=== PATIENT | male | born 2000 | race African-American/Black ===

== ENCOUNTER 2022-09-03 17:15 | Emergency (ER) | payer BC, OTHER ==
[~2022-09-03] VITALS: Ht 177.8 cm; Wt 68.0 kg
--- NOTE | 2022-09-03 17:26 | ED Upper Extremity ---
General Chief Complaint: Upper Extremity Stated Complaint: RT HAND FINGER INJURY History of Present Illness Date Seen by Provider: Sep 03, 2022 Time Seen by Provider: 17:25 Initial Comments 21-year-old male is sent here from the urgent care clinic for a right middle finger dislocation which the patient sustained while playing football today. Patient jammed his finger on the football. Urgent care sent the patient to the ER for reduction of the joint. Patient complains of mild pain and swelling of the right middle finger. Denies sensory loss. Allergies and Home Medications Allergies Coded Allergies: No Known Drug Allergies (Unverified , 09/03/22) Patient Home Medication List Home Medication List Reviewed: Yes Review of Systems Constitutional: no symptoms reported EENTM: no symptoms reported Respiratory: no symptoms reported Cardiovascular: no symptoms reported Gastrointestinal: no symptoms reported Genitourinary: no symptoms reported Musculoskeletal: joint pain, joint swelling Skin: no symptoms reported Psychiatric/Neurological: No Symptoms Reported Physical Exam Vital Signs Vital Signs - First Documented 09/03/22 17:25 Temp 36.2 Pulse 82 Resp 18 B/P (MAP) 134/77 (96) Pulse Ox 99 O2 Delivery Room Air Capillary Refill : Height, Weight, BMI Height: '" Weight: lbs. oz. kg; BMI Method: General Appearance: WD/WN, no apparent distress HEENT: PERRL/EOMI Neck: full range of motion Wrist: Yes normal inspection, Yes non-tender, Yes no evidence of injury, Yes normal ROM Hand: Right, bone tenderness, deformity (right 4th finger, PIP joint deformity and swelling. NV bundle intact. Limited ROM due to injury), limited ROM Neurologic/Tendon: normal sensation Neurologic/Psychiatric: alert, normal mood/affect, oriented x 3 Progress/Results/Core Measures Results/Orders My Orders Orders - ANTONETTE BECKHAM MD Finger(S) (09/03/22 17:39) Finger(S) (09/03/22 19:22) Rx-Oxycodone/Apap 5-325 Mg (Rx-Percocet (09/03/22 20:00) Ibuprofen Tablet (Motrin Tablet) (09/03/22 20:00) Medications Given in ED Current Medications Medications Dose Ordered Sig/Flex Route Start Time Stop Time Status Last Admin Dose Admin Ibuprofen 600 mg ONCE ONCE PO 09/03/22 20:00 09/03/22 20:01 DC 09/03/22 20:05 600 MG Vital Signs/I&O 09/03/22 17:25 Temp 36.2 Pulse 82 Resp 18 B/P (MAP) 134/77 (96) Pulse Ox 99 O2 Delivery Room Air Progress Progress Note : Progress Note 1. RIGHT 4TH FINGER PIP DISLOCATION with avulsion fracture: - XR RIGHT 4TH FINGER: DISLOCATION AND AVULSION - repeat reduction xr: SUCCESSFUL REDUCTION - Urgent care sent a diSc with x-ray images of finger but we are unable to access it since we do not have a machine which can read it. We called urgent care and they are unable to cloud it to us. - Local finger block with 2% lido, finger reduction done. Splint placed. - Ibuprofen 600mg given in ER - Follow up with Ortho within 7 days ( Dr Skaggs's office).Call for appointment - Cannot play football until cleared by ortho - Percocet tabs dispensed from ER for severe pain, every 6 hours as needed., For mild to moderate pain take ibuprofen 600mg every 6 to 8 hours - Ice application Diagnostic Imaging Diagonstic Imaging: Xray Plain Films/CT/US/NM/MRI: other Comments [email or web address] [place] NAME: DENA CLARK MED REC#: [id number] PT STATUS: REG ER : 2000 PHYSICIAN: ANTONETTE BECKHAM MD ADMIT DATE: 09/03/22/ER FS Draft Date of Exam:09/03/22 FINGER(S) EXAMINATION: Left fingers 2 or more views. HISTORY: Finger injury. COMPARISON: Earlier the same day. FINDINGS: There has been reduction of the proximal interphalangeal dislocation of the right fourth finger. There is a fracture fragment at the joint line. IMPRESSION: Reduced dislocation of the proximal interphalangeal joint of the right fourth finger with a small fracture fragment at the jointline. Dictated on workstation # [id number] Dict: 09/03/221954 Trans: 09/03/222000 PJE [id number] Interpreted by: PHILOMENA RUDOLPH MD Electronically signed by: [email or web address] [place] NAME: DENA CLARK MED REC#: [id number] PT STATUS: REG ER : 2000 PHYSICIAN: ANTONETTE BECKHAM MD ADMIT DATE: 09/03/22/ER FS Signed Date of Exam:09/03/22 FINGER(S) EXAMINATION: Left fingers 2 or more views. HISTORY: Finger injury. COMPARISON: None available. FINDINGS: There is a fracture dislocation of the fourth proximal interphalangeal joint with posterior displacement of the distal and middle phalanx. There is a small avulsion fracture of the base of the middle phalanx. No other fracture is seen. IMPRESSION: Fracture dislocation of the proximal interphalangeal joint of the right fourth finger. Dictated by: Dictated on workstation # [id number] Dict: 09/03/221838 Trans: 09/03/221852 PJ [id number] Interpreted by: PHILOMENA RUDOLPH MD Electronically signed by: PHILOMENA RUDOLPH MD 09/03/221852 Departure Impression Primary Impression: Closed fracture dislocation of proximal interphalangeal (PIP) joint of finger Qualified Codes: S62.609A - Fracture of unspecified phalanx of unspecified finger, initial encounter for closed fracture Additional Impression: Avulsion fracture of proximal phalanx of finger Disposition: 01 HOME, SELF-CARE Condition: Improved Departure-Patient Inst. Referrals: ENRIKE SKAGGS MD Patient Instructions: Splint Care, Finger Fracture ED, Avulsion Fracture Add. Discharge Instructions: - Follow up with Ortho within 7 days ( Dr Skaggs's office).Call for appointment - Cannot play football until cleared by ortho - Percocet tabs dispensed from ER for severe pain, every 6 hours as needed., For mild to moderate pain take ibuprofen 600mg every 6 to 8 hours - Ice application All discharge instructions reviewed with patient and/or family. Voiced understanding. Work/School Note: School/Childcare Release Date Seen in the Emergency Department: Sep 03, 2022 Return to School: Sep 05, 2022 Restrictions: No PE-Until Released, No Sports-Until Released, Need Release from Doctor Other Restrictions Listed Below: Need clearance from Ortho prior to playing football ANTONETTE BECKHAM MD Sep 03, 2022 17:25
--- NOTE | 2022-09-03 18:45 | Diagnostic Imaging Report ---
EXAMINATION: Left fingers 2 or more views. HISTORY: Finger injury. COMPARISON: None available. FINDINGS: There is a fracture dislocation of the fourth proximal interphalangeal joint with posterior displacement of the distal and middle phalanx. There is a small avulsion fracture of the base of the middle phalanx. No other fracture is seen. IMPRESSION: Fracture dislocation of the proximal interphalangeal joint of the right fourth finger. Dictated by: Dictated on workstation # [id number]
[2022-09-03] MEDS ORDERED: RX-OXYCODONE/APAP 5-325 MG #4 TAB PK PO PRN (20:00)
[2022-09-03] MEDS ORDERED: IBUPROFEN 600 MG (MOTRIN) TAB PO ONE (20:00)
--- NOTE | 2022-09-03 20:02 | Diagnostic Imaging Report ---
EXAMINATION: Left fingers 2 or more views. HISTORY: Finger injury. COMPARISON: Earlier the same day. FINDINGS: There has been reduction of the proximal interphalangeal dislocation of the right fourth finger. There is a fracture fragment at the joint line. IMPRESSION: Reduced dislocation of the proximal interphalangeal joint of the right fourth finger with a small fracture fragment at the jointline. Dictated by: Dictated on workstation # [id number]
[2022-09-03 20:22] VITALS: BP 118/76
== END 2022-09-03 20:36 | disposition home or self-care (01) ==
LOC: ER FS 17:18
DX: S62.614A Displaced fracture of proximal phalanx of right ring finger, initial encounter for closed fracture (principal); W21.01XA Struck by football, initial encounter; Y93.61 Activity, american tackle football
CPT/HCPCS: 73140